=== PATIENT | male | born 1975 | race Caucasian/White ===

== ENCOUNTER 2017-05-31 14:54 | Emergency (ER) | payer SELFPAY ==
[~2017-05-31] VITALS: Ht 172.7 cm; Wt 82.0 kg
[~2017-05-31 14:54] MED LIST: PENI500T PO; TYLE3 PO; Z.0.NO CURRENT MEDS
[2017-05-31 14:55] VITALS: BP 140/90; PULSE 92; RESP 24; TEMP 98.1; O2SAT 99
[2017-05-31] MEDS ORDERED: IBUP200C PO (15:20)
[2017-05-31] MEDS ORDERED: IBUP1TAB7 PO (15:45)
[2017-05-31] MEDS ORDERED: PENI500T PO (15:45)
--- NOTE | 2017-05-31 15:49 | PD ---
HPI Chief Complaint: Oral / Dental Pain or Problem Time Seen by Provider: 15:26 Travel History International Travel<30 days: No Contact w/Intl Traveler<30days: No Traveled to known affect area: No History of Present Illness HPI 42-year-old male presents for evaluation of dental pain. He has been having dental pain intermittently for the past few months but over the past few days it has been more consistent. Pain is localized to the right mandibular first molar, constant, worse when shooting, throbbing, no alleviating factors. Denies any fevers or chills. He has no other complaints at this time. [facility] Social History Alcohol Use: No Tobacco Use: No Allergies-Medications (Allergen,Severity, Reaction): Coded Allergies: No Known Allergies (Verified Adverse Reaction, Unknown, 05/31/17) Reported Meds & Prescriptions Reported Meds & Active Scripts Active Ibuprofen 800 Mg Tab 800 Mg PO Q6HR PRN Penicillin V Potassium 500 Mg Tab 500 Mg PO Q8H 7 Days Reported Ibuprofen 200 Mg Cap 400 Mg PO Q6H PRN Review of Systems General / Constitutional: No: Fever, Chills HENT: Positive: Dental Difficulties, No: Congestion Respiratory: No: Cough Physical Exam Narrative GENERAL: Well-developed well-nourished male in no acute distress SKIN: Warm and dry. HEAD: Atraumatic. Normocephalic. EYES: Pupils equal and round. No scleral icterus. No injection or drainage. ENT: No nasal bleeding or discharge. Mucous membranes pink and moist. Dental decay localized to the right mandibular first molar which is tender to palpation. The surrounding gumline is mildly erythematous. No trismus or sublingual edema. NECK: Trachea midline. No JVD. CARDIOVASCULAR: Regular rate and rhythm. No murmur appreciated. RESPIRATORY: No accessory muscle use. Clear to auscultation. Breath sounds equal bilaterally. Data Data Last Documented VS Vital Signs Date Time Temp Pulse Resp B/P (MAP) Pulse Ox O2 Delivery O2 Flow Rate FiO2 05/31/17 14:55 98.1 92 24 140/90 (107) 99 MDM Medical Decision Making Medical Screen Exam Complete: Yes Emergency Medical Condition: Yes Medical Record Reviewed: Yes Differential Diagnosis Dental caries, pulpitis, pericoronitis, periodontal abscess Narrative Course 42-year-old male with dental pain. Examination reveals dental caries. He is being discharged with a short course of penicillin and ibuprofen. Diagnosis Primary Impression: Dental caries Additional Instructions: Medication as prescribed. Follow-up with a dentist for definitive therapy. Return for any emergent medical conditions. Med/Other Pt SpecificInfo: Prescription(s) given Scripts Ibuprofen (Ibuprofen) 800 Mg Tab 800 MG PO Q6HR Y for PAIN, #40 TAB 0 Refills Prov: Keven Carepnter MD 05/31/17 Penicillin V Potassium (Penicillin V Potassium) 500 Mg Tab 500 MG PO Q8H for Infection for 7 Days, #21 TAB 0 Refills Prov: Keven Carpenter MD 05/31/17 Disposition: 01 DISCHARGE HOME Condition: Stable Jose M Howard May 31, 2017 15:49
== END 2017-05-31 16:01 | disposition home or self-care (01) ==
LOC: NEPK 14:54
DX: K02.9 Dental caries, unspecified (principal)
CPT/HCPCS: 99283